=== PATIENT | male | born 1955 | race Caucasian/White ===

== ENCOUNTER → 2018-03-28 | Outpatient (CLI) | payer OTHER | END | disposition home or self-care (01) | LOC: EEG 09:43 | DX: G40.909 Epilepsy, unspecified, not intractable, without status epilepticus (principal) | CPT/HCPCS: 95819 ==

== ENCOUNTER 2018-07-03 15:50 | Emergency (ER) | payer OTHER | END 2018-07-03 17:21 | disposition home or self-care (01) | LOC: E/R 15:50 | DX: K40.90 Unilateral inguinal hernia, without obstruction or gangrene, not specified as recurrent (principal); R40.2252 Coma scale, best verbal response, oriented, at arrival to emergency department; R40.2362 Coma scale, best motor response, obeys commands, at arrival to emergency department; R40.2142 Coma scale, eyes open, spontaneous, at arrival to emergency department | CPT/HCPCS: 99283; Z7502 ==

== ENCOUNTER 2018-07-26 08:07 | Day surgery (SDC) | payer OTHER ==
[~2018-07-26 08:07] MED LIST: CEFAZOLIN 1 GM INJ; DEXAMETHASONE 4 MG/ML 5 ML INJ
[2018-07-26 09:56] LABS: INR 0.86; PARTIAL THROMBOPLASTIN TIME 30.5 Sec (23.0-35.0); PROTIME 11.8 Sec (11.9-14.9); PT RATIO 0.9
[2018-07-26] MEDS ORDERED: LIDOCAINE 2% (SDV) 5 ML INJ (10:57)
[2018-07-26] MEDS ORDERED: GLYCOPYRROLATE 0.4 MG INJ (10:57)
[2018-07-26] MEDS ORDERED: ROCURONIUM 50 MG INJ (10:57)
[2018-07-26] MEDS ORDERED: MIDAZOLAM 1 MG/ML 2 ML INJ (10:58)
[2018-07-26] MEDS ORDERED: PROPOFOL 20 ML (10:58)
[2018-07-26] MEDS ORDERED: FENTAnyl 50 MCG/ML VIAL (10:58)
[2018-07-26] MEDS ORDERED: NEOSTIGMINE 3 MG/3 ML SYRINGE (10:58)
[2018-07-26] MEDS ORDERED: ONDANSETRON 4 MG INJ ×2 (11:00→13:56)
[2018-07-26] MEDS ORDERED: SUGAMMADEX SODIUM 200 MG/2 ML VIAL IV (11:00)
[2018-07-26] MEDS ORDERED: LIDOCAINE 1% (MPF) 10 ML INJ (11:46)
[2018-07-26] MEDS ORDERED: HYDROCODONE/APAP (10/325) TAB PO (12:00)
[2018-07-26] MEDS ORDERED: HYDROCODONE/APAP (5/325) TAB PO (12:09)
[2018-07-26] MEDS: LIDOCAINE 1% (MDV) 20 ML INJ (12:35)
[2018-07-26] MEDS: BUPIVACAINE 0.5%/EPI (SDV) 30 ML INJ (12:35)
[2018-07-26] MEDS: POLYMYXIN/BACITRACIN 1L IRRIG IRR (12:36)
[2018-07-26] MEDS ORDERED: HYDROmorphONE 1 MG/5 ML IV SYRINGE IV (13:56)
[2018-07-26] MEDS ORDERED: KETOROLAC 30 MG INJ IV ×2 (14:00→14:15)
[2018-07-26] MEDS: HYDROmorphONE 1 MG/5 ML IV SYRINGE IV (14:11)
[2018-07-26] MEDS ORDERED: ONDANSETRON 4 MG INJ IV (14:12)
[2018-07-26] MEDS: FENTAnyl 50 MCG/ML VIAL IV (14:30)
[2018-07-26] MEDS ORDERED: DIPHENHYDRAMINE 50 MG INJ (15:19)
[2018-07-26] MEDS ORDERED: DIPHENHYDRAMINE 50 MG INJ IM (15:30)
[2018-07-26] MEDS ORDERED: DIPHENHYDRAMINE 50 MG INJ IV (17:00)
[2018-07-26] MEDS: HYDROCODONE/APAP (5/325) TAB PO (17:54)
== END 2018-07-26 18:30 | disposition home or self-care (01) ==
LOC: SDS 08:07
DX: K40.90 Unilateral inguinal hernia, without obstruction or gangrene, not specified as recurrent (principal); D17.6 Benign lipomatous neoplasm of spermatic cord
CPT/HCPCS: 49505; 85610; 85730; 88302; 88304

== ENCOUNTER 2018-07-29 18:32 | Observation (INO) | payer OTHER ==
[2018-07-29 21:12] LABS: WHITE BLOOD COUNT 8.8 10^3/ul (4.8-10.8)
[2018-07-29 21:12] LABS: HEMATOCRIT 34.8 % (42.0-52.0); HEMOGLOBIN 11.5 g/dl (14.0-18.0); MEAN CORPUSCULAR HEMOGLOBIN 29.6 pg (29.0-33.0); MEAN CORPUSCULAR VOLUME 89.5 fl (82.0-101.0); MEAN PLATELET VOLUME 9.7 fl (7.4-10.4); PLATELET COUNT 183 10^3/UL (140-415); RED BLOOD COUNT 3.89 10^6/ul (4.70-6.10); RED CELL DISTRIBUTION WIDTH 13.1 % (11.5-14.5)
[2018-07-29] MEDS: HYDROmorphONE 1 MG/ML SYG IV (21:13)
[2018-07-29 21:17] LABS: ADD MAN DIFF? YES
[2018-07-29] MEDS: PIPER-TAZO 3.375 GM IV (PMX) 100 ML IVPB (21:24)
[2018-07-29 21:27] LABS: ANION GAP 11 (5-13); BLOOD UREA NITROGEN 13 mg/dl (7-20); CARBON DIOXIDE 29 mmol/L (21-31); CHLORIDE 101 mmol/L (97-110); CREATININE 0.75 mg/dl (0.61-1.24); Estimated GFR > 60 mL/min (>60); GLUCOSE 100 mg/dl (70-220); POTASSIUM 3.9 mmol/L (3.5-5.1); SODIUM 141 mmol/L (135-144)
[2018-07-29] MEDS ORDERED: ACETAMINOPHEN 325 MG TAB PO (21:30)
[2018-07-29] MEDS ORDERED: ONDANSETRON 4 MG INJ IV (21:30)
[2018-07-29] MEDS: DIPHENHYDRAMINE 50 MG INJ IV (21:51)
[2018-07-29] MEDS ORDERED: SOD CHLORIDE 0.9% 100 ML (22:04)
[2018-07-29] MEDS ORDERED: IOHEXOL 300MG/ML 150 ML BTL (22:05)
[2018-07-29] MEDS: CEFEPIME 2GM/50 ML (PMX) 50 ML IVPB (22:07)
[2018-07-29 22:50] LABS: ANISOCYTOSIS 1+ (0-0); BASOPHIL #M 0.1 10^3/ul (0.0-0.0); BASOPHILS % (M) 2 % (0-2); BURR CELLS 1+ (0-0); EOSINOPHILS % (M) 2 % (0-7); LYMPHOCYTES % (M) 35 % (15-51); MICROCYTOSIS 1+ (0-0); MONOCYTE #M 0.7 10^3/ul (0.3-0.9); MONOCYTES % (M) 8 % (0-11); PLATELET ESTIMATE NORMAL; POLYCHROMASIA 1+ (0-0); SEGMENTED NEUTROPHILS (M) % 53 % (39-77); SMUDGE%M 27 % (0-0)
[2018-07-29] MEDS: VANCOMYCIN 1 GM (PMX) 250 ML IVPB (22:51)
[2018-07-30] MEDS ORDERED: ACETAMINOPHEN 325 MG TAB PO (01:00)
[2018-07-30] MEDS ORDERED: VANCOMYCIN IV PER PHARMACY XX (01:00)
[2018-07-30] MEDS ORDERED: ONDANSETRON 4 MG INJ IV (01:00)
[2018-07-30] MEDS: SOD CHLORIDE 0.9% 1,000 ML IV (01:23)
[2018-07-30] MEDS: traZODone 50 MG TAB PO (01:23)
[2018-07-30 05:52] LABS: ADD MAN DIFF? NO
[2018-07-30 05:56] LABS: BASOPHIL # 0.1 10^3/ul (0.0-0.1); BASOPHILS % 0.6 % (0.0-2.0); EOSINOPHILS # 0.2 10^3/ul (0.0-0.5); EOSINOPHILS % 2.8 % (0.0-7.0); HEMATOCRIT 36.2 % (42.0-52.0); HEMOGLOBIN 12.1 g/dl (14.0-18.0); LYMPHOCYTES # 2.7 10^3/ul (0.8-2.9); LYMPHOCYTES % 32.9 % (15.0-51.0); MEAN CORPUSCULAR HEMOGLOBIN 29.8 pg (29.0-33.0); MEAN CORPUSCULAR HGB CONC 33.4 g/dl (32.0-37.0); MEAN CORPUSCULAR VOLUME 89.2 fl (82.0-101.0); MEAN PLATELET VOLUME 9.7 fl (7.4-10.4); MONOCYTE # 1.1 10^3/ul (0.3-0.9); MONOCYTES % 13.1 % (0.0-11.0); NEUTROPHIL # 4.1 10^3/ul (1.6-7.5); NEUTROPHILS % 50.1 % (39.0-77.0); PLATELET COUNT 197 10^3/UL (140-415); RED BLOOD COUNT 4.06 10^6/ul (4.70-6.10); RED CELL DISTRIBUTION WIDTH 12.9 % (11.5-14.5)
[2018-07-30 05:56] LABS: WHITE BLOOD COUNT 8.1 10^3/ul (4.8-10.8)
[2018-07-30] MEDS: VANCOMYCIN 1 GM 250 ML IVPB (06:06)
[2018-07-30] MEDS: PANTOPRAZOLE 40 MG INJ IV (06:07)
[2018-07-30 06:33] LABS: ANION GAP 11 (5-13); BLOOD UREA NITROGEN 14 mg/dl (7-20); CALCIUM 8.8 mg/dl (8.4-10.2); CARBON DIOXIDE 30 mmol/L (21-31); CHLORIDE 101 mmol/L (97-110); CREATININE 0.66 mg/dl (0.61-1.24); Estimated GFR > 60 mL/min (>60); GLUCOSE 105 mg/dl (70-220); POTASSIUM 3.6 mmol/L (3.5-5.1); SODIUM 142 mmol/L (135-144)
[2018-07-30] MEDS: LEVETIRACETAM 750 MG TAB PO (09:02)
[2018-07-30] MEDS ORDERED: OXYCODONE/ACETAMINOPHEN (10/325) TAB PO (09:30)
[2018-07-30] MEDS ORDERED: POLYETHYLENE GLYCOL 17 GM PACKET NGT (09:30)
[2018-07-30] MEDS: DOCUSATE SODIUM 100 MG CAP PO (09:44)
[2018-07-30] MEDS: OXYCODONE/ACETAMINOPHEN (10/325) TAB PO (09:45)
[2018-07-30] MEDS ORDERED: traZODone 50 MG TAB PO (21:00)
== END 2018-07-30 14:55 | disposition home or self-care (01) ==
LOC: E/R 18:32 → 2NE 21:06
DX: R10.31 Right lower quadrant pain (principal)
CPT/HCPCS: 36415; 72193; 80048; 85025; 96365; 96375; 99285-25

== ENCOUNTER 2018-10-15 14:09 | Emergency (ER) | payer OTHER ==
[2018-10-15 14:59] LABS: ADD MAN DIFF? NO
[2018-10-15] MEDS: METHYLPREDNISOLONE 125 MG INJ IV (14:59)
[2018-10-15 15:05] LABS: BASOPHIL # 0.1 10^3/ul (0.0-0.1); EOSINOPHILS # 0.3 10^3/ul (0.0-0.5); EOSINOPHILS % 3.5 % (0.0-7.0); HEMATOCRIT 41.7 % (42.0-52.0); HEMOGLOBIN 13.9 g/dl (14.0-18.0); LYMPHOCYTES % 42.9 % (15.0-51.0); MEAN CORPUSCULAR HEMOGLOBIN 29.2 pg (29.0-33.0); MEAN CORPUSCULAR HGB CONC 33.3 g/dl (32.0-37.0); MEAN CORPUSCULAR VOLUME 87.6 fl (82.0-101.0); MEAN PLATELET VOLUME 9.4 fl (7.4-10.4); MONOCYTE # 0.9 10^3/ul (0.3-0.9); MONOCYTES % 12.1 % (0.0-11.0); NEUTROPHIL # 2.9 10^3/ul (1.6-7.5); NEUTROPHILS % 40.2 % (39.0-77.0); PLATELET COUNT 275 10^3/UL (140-415); RED BLOOD COUNT 4.76 10^6/ul (4.70-6.10); RED CELL DISTRIBUTION WIDTH 12.4 % (11.5-14.5)
[2018-10-15 15:05] LABS: WHITE BLOOD COUNT 7.1 10^3/ul (4.8-10.8)
[2018-10-15 15:26] LABS: ALANINE AMINOTRANSFERASE 27 IU/L (13-69); ALBUMIN/GLOBULIN RATIO 1.33; ALKALINE PHOSPHATASE 73 IU/L (42-121); ANION GAP 7 (5-13); ASPARTATE AMINO TRANSFERASE 27 IU/L (15-46); BILIRUBIN,INDIRECT 0.4 mg/dl (0-1.1); BILIRUBIN,TOTAL 0.4 mg/dl (0.2-1.3); BLOOD UREA NITROGEN 16 mg/dl (7-20); CALCIUM 9.2 mg/dl (8.4-10.2); CARBON DIOXIDE 25 mmol/L (21-31); CHLORIDE 107 mmol/L (97-110); CREATININE 0.78 mg/dl (0.61-1.24); Estimated GFR > 60 mL/min (>60); GLUCOSE 84 mg/dl (70-220); SODIUM 139 mmol/L (135-144)
[2018-10-15] MEDS: ALBUTEROL 0.083% (NEB) 2.5 MG/3 ML AMP INH (15:28)
[2018-10-15 15:37] LABS: TROPONIN-I < 0.012 ng/ml (0.000-0.120)
[2018-10-15] MEDS: VANCOMYCIN 1 GM (PMX) 250 ML IVPB (17:04)
[2018-10-15] MEDS: ALBUTEROL 0.083% (NEB) 2.5 MG/3 ML AMP HHN (19:51)
[2018-10-15] MEDS: ALBUTEROL 0.083% (NEB) 2.5 MG/3 ML AMP NEB (19:51)
== END 2018-10-15 20:35 | disposition home or self-care (01) ==
LOC: E/R 20:35
DX: J18.1 Lobar pneumonia, unspecified organism (principal)
CPT/HCPCS: 36415; 71045; 80053; 84484; 85025; 87040-91; 93005; 94640; 94664; 96374; 96375; 99285-25